=== PATIENT | female | born 1995 | race Caucasian/White ===

== ENCOUNTER 2021-04-14 09:49 | Inpatient (IN) ==
[2021-04-14] MEDS ORDERED: Metoclopramide 10 MG/2 ML VIAL IVP ONE (10:13)
[2021-04-14] MEDS ORDERED: Ringers Solution, Lactated 1,000 ML IVC ONE (10:13)
[2021-04-14] MEDS ORDERED: Famotidine 20 MG/2 ML VIAL IVP ONE (10:13)
[2021-04-14] MEDS ORDERED: CeFAZolin 2,000MG/50ML DUPLEX 2,000 MG/50 ML BAG IVPB ONE (10:13)
[2021-04-14] MEDS ORDERED: Ringers Solution, Lactated 1,000 ML IVC SCH ×2 (10:15→16:02)
[2021-04-14] MEDS ORDERED: Ringers Solution, Lactated 1,000 ML ONE (10:41)
[2021-04-14] MEDS ORDERED: *HR* OxyCODONE Immed Rel 5 MG TABLET PO PRN (10:52)
[2021-04-14] MEDS ORDERED: Ondansetron 4 MG/2 ML VIAL IVP PRN ×2 (10:52→16:02)
[2021-04-14] MEDS ORDERED: *HR* FentaNYL (PF) 100 MCG/2 ML VIAL ONE ×3 (10:57→12:33)
[2021-04-14] MEDS ORDERED: *HR* Morphine Sulfate/PF 10 MG/10 ML AMPUL ONE (10:57)
[2021-04-14 11:08] LABS: Basophils % 0.2 %; Eosinophils # 0.1 K/mcL (0.0-0.6); Eosinophils % 0.5 %; Hematocrit 36.3 % (35.3-44.9); Hemoglobin 11.7 g/dL (11.5-15.4); Immature Granulocytes % 0.3 % (0-4); Lymphocytes # 1.7 K/mcL (0.6-4.6); Lymphocytes % 16.9 %; Mean Corpuscular HGB Conc 32.2 g/dL (31.6-35.5); Mean Corpuscular Hemoglobin 26.8 pg (28.0-33.3); Mean Corpuscular Volume 83.1 fL (83.0-100.0); Mean Platelet Volume 10.1 fL (9.4-12.4); Monocytes # 0.6 K/mcL (0.0-1.3); Monocytes % 5.7 %; Neutrophils # 7.6 K/mcL (1.6-8.9); Platelet Count 365 K/mcL (140-400); Red Blood Count 4.37 M/mcL (3.82-4.97); Red Cell Distribution Width 13.4 % (11.5-14.5); Segmented Neutrophils % 76.4 %
[2021-04-14] MEDS ORDERED: *HR* HYDROmorphone (PF) 1 MG/ML SYRINGE IVP PRN (11:26)
[2021-04-14] MEDS ORDERED: CeFAZolin Syr 3,000MG/30 ML 3,000 MG/30 ML SYRINGE IVPB ONE (11:30)
[2021-04-14 11:57] LABS: Amphetamine Screen,Urine Negative ng/mL (Cutoff=1000); Barbiturate Screen,Urine Negative ng/mL (Cutoff=200); Benzodiazepines Screen,Urine Negative ng/mL (Cutoff=200); Cannabinoid Screen,Urine Negative ng/mL (Cutoff = 50); Cocaine Screen,Urine Negative ng/mL (Cutoff= 300); Opiate Screen,Urine Negative ng/mL (Cutoff=300); Phencyclidine Screen,Urine Negative ng/mL (Cutoff=25)
[2021-04-14] MEDS ORDERED: Acetaminophen IV 1,000 MG/100 ML BAG IVPB ONE (12:16)
[2021-04-14] MEDS ORDERED: Ketorolac 30 MG/ML VIAL ONE (12:37)
[2021-04-14] MEDS ORDERED: Oxytocin 20 units/ LR 1000 mL 20 UNIT/1,000 ML BAG IVC ONE (14:17)
[2021-04-14] MEDS ORDERED: Oxytocin 20 units/ LR 1000 mL 20 UNIT/1,000 ML BAG IVC SCH ×2 (16:02)
[2021-04-14] MEDS ORDERED: Simethicone 80 MG TAB.CHEW PO PRN (16:02)
[2021-04-14] MEDS ORDERED: Metoclopramide 10 MG/2 ML VIAL IVP PRN (16:02)
[2021-04-14] MEDS ORDERED: Rho Immune Globulin 1,500 UNIT SYRINGE IM ONE (16:02)
[2021-04-14] MEDS: Ibuprofen 600 MG TABLET PO SCH (20:37)
[2021-04-15 05:08] LABS: Basophils % 0.2 %; Eosinophils # 0.1 K/mcL (0.0-0.6); Eosinophils % 0.8 %; Immature Granulocytes % 0.4 % (0-4); Lymphocytes # 1.5 K/mcL (0.6-4.6); Lymphocytes % 17.2 %; Mean Corpuscular HGB Conc 31.7 g/dL (31.6-35.5); Mean Corpuscular Hemoglobin 26.7 pg (28.0-33.3); Mean Corpuscular Volume 84.3 fL (83.0-100.0); Mean Platelet Volume 9.9 fL (9.4-12.4); Monocytes # 0.7 K/mcL (0.0-1.3); Monocytes % 8.3 %; Neutrophils # 6.3 K/mcL (1.6-8.9); Platelet Count 255 K/mcL (140-400); Red Blood Count 3.44 M/mcL (3.82-4.97); Red Cell Distribution Width 13.5 % (11.5-14.5); Segmented Neutrophils % 73.1 %; White Blood Count 8.6 K/mcL (4.3-11.1)
[2021-04-15 05:12] LABS: Hemoglobin 9.2 g/dL (11.5-15.4)
[2021-04-15] MEDS: Ibuprofen 600 MG TABLET PO SCH ×4 (05:21→20:27)
[2021-04-15] MEDS: *HR* Enoxaparin 80 MG/0.8 ML SYRINGE SQ SCH ×2 (05:22→18:28)
[2021-04-15] MEDS: *HR* HYDROcodone/Acet 5/325 mg TABLET PO PRN ×2 (08:37→20:27)
[2021-04-15] MEDS: Prenatal Vit/FA 1 EACH TABLET PO SCH (08:37)
[2021-04-15] MEDS ORDERED: Lanolin 7 G OINT...G. TP PRN (09:53)
[2021-04-16] MEDS: Ibuprofen 600 MG TABLET PO SCH (06:11)
[2021-04-16] MEDS: *HR* Enoxaparin 80 MG/0.8 ML SYRINGE SQ SCH (06:12)
[2021-04-16 07:58] VITALS: BP 122/69
[2021-04-16] MEDS: Prenatal Vit/FA 1 EACH TABLET PO SCH (08:37)
[2021-04-16] MEDS: *HR* HYDROcodone/Acet 5/325 mg TABLET PO PRN (08:40)
== END 2021-04-16 13:41 | disposition home or self-care (01) | DRG 539 ==
LOC: 1NENULAB 09:49 → 1NENUOBS 15:57
PROVIDERS: ADMIT Obstetrics & Gynecology; ATTEND Obstetrics & Gynecology